=== PATIENT | female | born 1995 | race Caucasian/White ===

== ENCOUNTER 2016-10-08 07:20 | Outpatient (CLI) | payer OTHER, MEDICAID ==
[2016-10-08 07:55] VITALS: BMI 20.7
[2016-10-08 08:03] LABS: PH,URINE 6.5 (5.0-8.0); SPECIFIC GRAVITY 1.015 (1.001-1.030); URINE BILIRUBIN NEGATIVE (NEGATIVE); URINE BLOOD TRACE (NEGATIVE); URINE GLUCOSE (UA) NEGATIVE (NEGATIVE); URINE LEUKOCYTE ESTERASE NEGATIVE (NEGATIVE); URINE NITRITE NEGATIVE (NEGATIVE); URINE PROTEIN NEGATIVE (NEGATIVE); URINE UROBILINOGEN NORMAL (0-1 mg/dl)
[2016-10-08 08:07] LABS: URINE APPEARANCE CLEAR; URINE COLOR YELLOW
[2016-10-08 08:11] LABS: URINE BACTERIA RARE; URINE EPITHELIAL CELLS 0-1 /hpf; URINE RBC 0 /hpf; URINE WBC 0-1 /hpf
== END 2016-10-08 10:10 | disposition home or self-care (01) ==
LOC: FBCOUT 07:20 → FBC 07:22 → FBCOUT 10:10
PROVIDERS: ATTEND Family Medicine
DX: O26.899 Other specified pregnancy related conditions, unspecified trimester (principal); R05 Cough; R50.9 Fever, unspecified; R10.32 Left lower quadrant pain; Z3A.00 Weeks of gestation of pregnancy not specified
CPT/HCPCS: 81001; 87804; 59050; G0463